=== PATIENT | female | born 2000 | race Caucasian/White ===

== ENCOUNTER 2024-05-06 10:45 | Emergency (ER) | payer BC, SELFPAY ==
[2024-05-06 10:58] VITALS: BP 126/73; PULSE 87; RESP 16; TEMP 36.4; O2SAT 100
--- NOTE | 2024-05-06 11:11 | ED.WOUNDLAC ---
HPI - Wound/Laceration General Chief Complaint: Wound/Laceration Stated Complaint: left ring finger cut Time Seen by Provider: 05/06/24 11:12 Source: patient, RN notes reviewed and old records reviewed Mode of arrival: ambulatory Limitations: no limitations History of Present Illness HPI narrative: Patient presents with complaints of blood filled blister at the tip of the left 4th finger. She reports that about 2 weeks ago she got a paper cut to the affected area, did not think much of this. As the site healed, she noticed a blister forming, she says now when she hits the affected area it bleeds easily. It did not hurt at 1st, but over the past couple of days she has noted some pain. She denies any fever, chills, sweats. She denies any active drainage except for some bleeding when the site is irritated. Denies other injury and trauma. Has no other complaints today Related Data Allergies Allergy/AdvReac Type Severity Reaction Status Date / Time No Known Allergies Allergy Verified 05/06/24 11:11 Review of Systems Review of Systems: All systems reviewed & are unremarkable except as noted in HPI and below Constitutional: Constitutional: Reports no additional constitutional complaints ENT: Reports system reviewed and no additional complaints, except as documented Cardiovascular: Cardiovascular: Reports no additional cardiovascular complaints Respiratory: Respiratory: Reports no additional respiratory complaints Gastrointestinal: Gastrointestinal: Reports no additional gastrointestinal complaints Integumentary/Breasts: Skin/Breast: Reports system reviewed and no additional complaints, except as docu and Reports as per HPI PMFSH Comments At the time of my signature, I reviewed and agree with the nursing past medical, surgical, social, and family history. There is no relevant family history pertinent to the patient complaint. Exam Const: General: cooperative, no acute distress, alert and awake Orientation/consciousness: oriented to person, oriented to place and oriented to time HENMT: Head: normal to inspection Resp: Effort & Inspection: normal respiratory effort and able to speak in complete sentences Auscultation: clear to auscultation bilaterally, no crackles, no rales, no rhonchi and no wheezes Cardio: Palpation: normal PMI Rate: regular rate Rhythm: regular rhythm Heart sounds: S1 normal heart sound present and S2 normal heart sound present Skin: Full body images: 1. 2-3 mm blood-filled blister had edge of the nail bed, associated redness and swelling surrounding the area. What appears to be a pustule is forming just under the surface Neuro: General: oriented to person, oriented to place and oriented to time Cranial nerves: Yes CN's II-XII intact bilaterally Psych: Appearance: grossly normal Thought process: Normal thought process present Insight: Good insight present (Psych) Judgement: Good judgement present (Psych) Course Course Level of Care: Express Care Visit Vital Signs Vital signs: Vital Signs Temperature 97.5 F L 05/06/24 10:58 Pulse Rate 87 05/06/24 10:58 Respiratory Rate 16 05/06/24 10:58 Blood Pressure 126/73 05/06/24 10:58 Pulse Oximetry 100 05/06/24 10:58 Oxygen Delivery Room Air 05/06/24 10:58 Temperature 97.5 F L 05/06/24 10:58 Pulse Rate 87 05/06/24 10:58 Respiratory Rate 16 05/06/24 10:58 Blood Pressure 126/73 05/06/24 10:58 Pulse Oximetry 100 05/06/24 10:58 Oxygen Delivery Room Air 05/06/24 10:58 Reviewed Procedures Abscess I/D left 4th finger: Date of Incision: 05/06/24 Time of Incision: 11:30 Side (if applicable): left Sedation/analgesia: none Technique: needle aspiration Amount of fluid expressed (mL): 3 Packing used?: none I&D Results: Blood Abcess I&D Additional Comments: Small blood-filled sac at corner of the nail, left 4th finger drained with 18 gauge needle.
== END 2024-05-06 11:45 | disposition home or self-care (01) ==
PROVIDERS: Emergency Provider Nurse Practitioner Family
DX: L08.9 Local infection of the skin and subcutaneous tissue, unspecified (principal)
CPT/HCPCS: 10160; 99203; G0463